=== PATIENT | female | born 1950 | race Caucasian/White ===

== ENCOUNTER 2018-05-05 16:31 | Emergency (ER) | payer OTHER ==
[2018-05-05] MEDS ORDERED: EPINEPHrine 1 MG/ML INJ IM ONE (16:45)
[2018-05-05] MEDS ORDERED: methylPREDNISolone SOD SUCC 125 MG/2 ML VIAL IVP ONE (16:45)
[2018-05-05] MEDS ORDERED: NS 1,000 ML IV ONE (16:45)
[2018-05-05] MEDS ORDERED: RANITIDINE 50 MG/2 ML VIAL IVP ONE (16:45)
--- NOTE | 2018-05-05 16:49 | EDPHY ---
General Time Seen by Provider: 05/05/18 16:45 Narrative: CHIEF COMPLAINT: Allergic reaction HISTORY OF PRESENT ILLNESS: Patient presents by private vehicle with sister bedside with complaints of possible allergic reaction. She states that she notes some itching and rash to the upper extremities bilaterally about 1 hr ago. She has felt some itching sensation of the mouth, lips and her tongue. She did not have any difficulty breathing or swallowing, but she is concerned that this may progress. She has had anaphylaxis in the past, diagnosed with idiopathic anaphylaxis. Last occurring 1 year ago. Approximately 1 hr ago she did take hydroxyzine and 1 [id number] ranitidine. Symptoms have minimally improved. She has no chest pain or shortness of breath. No neck pain or stiffness, fever. She recently travel from [place]. No other associated complaints or modifying factors REVIEW OF SYSTEMS: 10 systems were reviewed and negative with the exception of the elements mentioned in the history of present illness. PCP: Locate in [place], [place] SPECIALISTS: [facility] in [place], [place] PAST MEDICAL HISTORY: Idiopathic anaphylaxis, hypothyroid PAST SURGICAL HISTORY: Thyroidectomy, right foot orthopedic surgery SOCIAL HISTORY: Occasional tobacco use. Lives in [place], [place]. Visiting her family here. FAMILY HISTORY: Noncontributory EXAMINATION: General Appearance: Alert, no distress. Speaking in full sentences Head: normocephalic, atraumatic Eyes: Pupils equal and round, no conjunctival pallor or injection ENT, Mouth: Mucous membranes moist. Airway is widely patent. There is no swelling of the lips, tongue or posterior pharynx. Airway is widely patent without trismus or drooling. Neck: Normal inspection, supple, non-tender. No meningismus Respiratory: Lungs are clear to auscultation Cardiovascular: Regular rate and rhythm. No murmur Gastrointestinal: Abdomen is soft and nontender Back: non-tender, no bony abnormalities Neurological: A&O, nonfocal, normal gait Skin: Warm and dry. Diffuse urticaria to the upper lower extremities, back and trunk. No petechiae. No purpura Extremities: Nontender, no pedal edema Psychiatric: Mood and affect normal DIFFERENTIAL DIAGNOSES: Including but not limited to anaphylaxis, angioedema, urticaria, who ordered reaction MDM: 4:45 p.m. Acute urticaria with pruritus of the extremities, lips, mouth and patient with idiopathic anaphylaxis. Her airway is widely patent with no edema of the tongue or lip. I do not appreciate any angioedema, trismus, drooling or compromise of the airway. I have ordered epinephrine IM, Solu-Medrol, Benadryl , Zantac and IV fluid. Will monitor closely. 5:30 p.m. Patient re-evaluated. Her urticaria is resolved. Her airway remains patent. She is talking in full sentences. She has no complaints of pain, shortness of breath or difficulty breathing. Will continue to monitor for 30 min, total of 1 hr post epinephrine. I would like her to try liquids by mouth at this time. 6:00 p.m. Patient re-evaluated. She has been drinking water without difficulty. She has minimal itching. No rash present. Her airway remains patent with no swelling of the lips, tongue or face. There is no rash on the face or neck. We discussed discharge home with Medrol Dosepak starting tomorrow morning. We discussed use of her epinephrine, and she has to epi pens. We discussed continuation of hydroxyzine and ranitidine daily. We discussed ED precautions. She is discharged home stable condition. SUPERVISION: This patient was independently evaluated without direct involvement of or examination by the attending physician. CONSULTATION: None - History Smoking Status: Never smoked - Objective Vital Signs: Initial Vital Signs Temperature (C) 97.9 F 05/05/18 16:37 Heart Rate 89 05/05/18 16:37 Respiratory Rate 16 05/05/18 16:37 Blood Pressure 134/61 H 05/05/18 16:37 O2 Sat (%) 95 05/05/18 16:37 O2 Delivery Mode Room Air Allergies/Adverse Reactions: acetaminophen [From Percocet] Allergy (Verified 05/05/18 16:36) Opioids - Morphine Analogues Allergy (Verified 05/05/18 16:36) oxycodone [From Percocet] Allergy (Verified 05/05/18 16:36) Sulfa (Sulfonamide Antibiotics) Allergy (Verified 05/05/18 16:36) Home Medications: Medication Instructions Recorded Epipen Kit 05/05/18 Hydroxyzine HCl 05/05/18 Singulair 05/05/18 Zyrtec 05/05/18 methylPREDNISolone [Medrol Dose 1 each PO AD #1 ea 05/05/18 Cj] Medications Given: Discontinued Medications Diphenhydramine HCl (Benadryl Injection) 50 mg IVP EDNOW ONE Stop: 05/05/18 16:46 Last Admin: 05/05/18 16:55 Dose: 50 mg Epinephrine HCl (Epinephrine) 0.3 mg IM EDNOW ONE Stop: 05/05/18 16:46 Last Admin: 05/05/18 16:52 Dose: 0.3 mg Sodium Chloride (Ns) 1,000 mls @ 0 mls/hr IV ONCE ONE; Wide Open PRN Reason: Protocol Stop: 05/05/18 16:46 Last Admin: 05/05/18 16:58 Dose: 1,000 mls Methylprednisolone Sodium Succinate (Solu-Medrol) 125 mg IVP EDNOW ONE Stop: 05/05/18 16:46 Last Admin: 05/05/18 16:53 Dose: 125 mg Ranitidine HCl (Zantac) 50 mg IVP EDNOW ONE Stop: 05/05/18 16:46 Last Admin: 05/05/18 16:53 Dose: 50 mg Departure - Departure Disposition: Home, Routine, Self-Care Clinical Impression: Urticaria Allergic reaction Qualifiers: Encounter type: initial encounter Qualified Code(s): T78.40XA - Allergy, unspecified, initial encounter Condition: Good Instructions: Anaphylaxis (ED), Urticaria (ED) Additional Instructions: 1. Medrol Dosepak as prescribed to completion starting tomorrow morning with breakfast 2. Use or epinephrine if you have any difficulty breathing, swelling of the face , lips, tongue or systemic rash 3. Follow up with primary care physician upon return to [place] later this week 4. ED precautions for any use of epinephrine or symptoms as above Referrals: Az Ireland DO [Doctor of Osteopathy] - As per Instructions Prescriptions: methylPREDNISolone [Medrol Dose Cj] 1 each PO AD #1 ea
[2018-05-05 18:07] VITALS: BP 134/81
== END 2018-05-05 18:08 | disposition home or self-care (01) ==
DX: T78.40XA Allergy, unspecified, initial encounter (principal); E03.9 Hypothyroidism, unspecified
CPT/HCPCS: 96374